=== PATIENT | female | born 1985 | race Caucasian/White ===

== ENCOUNTER 2022-05-22 15:39 | Emergency (ER) | payer BC ==
[2022-05-22 16:03] VITALS: BP 124/89; PULSE 78; RESP 16; TEMP 98.3; BMI 25.2
== END 2022-05-22 16:18 | disposition home or self-care (01) ==
LOC: FER 15:39
DX: L04.9 Acute lymphadenitis, unspecified (principal)
CPT/HCPCS: 99282-25